=== PATIENT | male | born 1980 | race Caucasian/White ===

== ENCOUNTER 2018-09-04 23:14 | Inpatient (IN) | payer OTHER ==
[~2018-09-04] VITALS: Ht 177.8 cm; Wt 84.1 kg
[2018-09-05] VITALS (7 sets, daily range): BP systolic 113–139; BP diastolic 75–96
[2018-09-05 04:20] LABS: PLATELET COUNT 134 x10^3mcL (130-400); RED CELL DISTRIBUTION WIDTH 12.8 % (11.5-14.5)
[2018-09-05 04:36] LABS: BAND NEUTROPHIL 20 % (0-10); MONOCYTE 6 % (0-7); MYELOCYTE 1 % (0-2); SEGMENTED NEUTROPHILS 68 % (37-75)
[2018-09-05 04:40] LABS: PLATELET MORPHOLOGY PLATELETS DECREASED; rbc morphology (normal/abnorm) NORMAL (NORMAL)
[2018-09-05 04:53] LABS: CALCIUM 8.7 mg/dL (8.5-10.1); CARBON DIOXIDE 30.6 mmol/L (21-32); CHLORIDE SERUM 94 mmol/L (98-107); CREATININE SERUM 0.9 mg/dL (0.7-1.3); GFR1 > 60 mL/min; GLUCOSE SERUM 417 mg/dL (74-106); POTASSIUM SERUM 3.9 mmol/L (3.5-5.1); SODIUM SERUM 131 mmol/L (136-145)
[2018-09-05 04:58] LABS: ALBUMIN 3.6 g/dL (3.4-5.0); ALKALINE PHOSPHATASE 133 U/L (46-116); ALT/SGPT 39 U/L (16-63); AST/SGOT 27 U/L (15-37); BILIRUBIN TOTAL 0.58 mg/dL (0.20-1.00); TOTAL PROTEIN, SERUM 7.4 g/dL (6.4-8.2)
[2018-09-05 05:47] LABS: microscopic required? NO
[2018-09-05 05:53] LABS: UA SPECIFIC GRAVITY <=1.005 (1.005-1.035); urine erythrocyte NEGATIVE (NEGATIVE)
[2018-09-05 07:41] LABS: FREE T4 1.34 ng/dL (0.76-1.46); FREE THYROXINE INDEX 3.6 ug/dL (1.4-4.5); T4(THYROXINE) 9.6 ug/dL (4.7-13.3)
[2018-09-05 07:57] LABS: CHOLESTEROL/HDL RATIO 2.5; MAGNESIUM 1.5 mg/dL (1.8-2.4); PHOSPHOROUS 2.5 mg/dL (2.5-4.9)
[2018-09-05 08:18] LABS: T3 TOTAL 1.2 ng/mL
[2018-09-05] MEDS ORDERED: ADDERALL XR30 MG PO (15:55)
[2018-09-06 05:42] VITALS: BP 142/97
[2018-09-06 06:24] LABS: PLATELET COUNT 141 x10^3mcL (130-400); RED CELL DISTRIBUTION WIDTH 12.9 % (11.5-14.5)
[2018-09-06 06:40] LABS: CALCIUM 8.6 mg/dL (8.5-10.1); CARBON DIOXIDE 26.2 mmol/L (21-32); CHLORIDE SERUM 98 mmol/L (98-107); CREATININE SERUM 0.9 mg/dL (0.7-1.3); GFR1 > 60 mL/min; GLUCOSE SERUM 180 mg/dL (74-106); POTASSIUM SERUM 3.5 mmol/L (3.5-5.1); SODIUM SERUM 134 mmol/L (136-145)
[2018-09-06 09:41] VITALS: BP 154/97
[2018-09-06 13:19] LABS: BAND NEUTROPHIL 6 % (0-10); BASOPHIL 0 % (0-2); MONOCYTE 6 % (0-7); SEGMENTED NEUTROPHILS 84 % (37-75)
[2018-09-06 13:20] LABS: PLATELET MORPHOLOGY PLATELETS DECREASED; rbc morphology (normal/abnorm) ABNORMAL (NORMAL)
[2018-09-06 14:05] VITALS: BP 164/103
[2018-09-06 16:33] VITALS: BP 148/96
[2018-09-06 21:42] VITALS: BP 125/77
[2018-09-07 05:45] VITALS: BP 134/95
[2018-09-07 06:40] LABS: PLATELET COUNT 173 x10^3mcL (130-400); RED CELL DISTRIBUTION WIDTH 12.9 % (11.5-14.5)
[2018-09-07 06:51] LABS: CALCIUM 7.9 mg/dL (8.5-10.1); CHLORIDE SERUM 100 mmol/L (98-107); CREATININE SERUM 0.7 mg/dL (0.7-1.3); GFR1 > 60 mL/min; GLUCOSE SERUM 189 mg/dL (74-106); POTASSIUM SERUM 3.3 mmol/L (3.5-5.1); SODIUM SERUM 137 mmol/L (136-145)
[2018-09-07 09:02] VITALS: BP 140/88
[2018-09-07 10:07] LABS: BAND NEUTROPHIL 4 % (0-10); BASOPHIL 0 % (0-2); MONOCYTE 5 % (0-7); PLATELET MORPHOLOGY PLATELETS NORMAL; SEGMENTED NEUTROPHILS 82 % (37-75)
[2018-09-07 13:55] VITALS: BP 141/99
[2018-09-07 16:12] VITALS: BP 149/97
[2018-09-07 21:25] VITALS: BP 107/75
[2018-09-08 05:42] VITALS: BP 108/59
[2018-09-08 06:34] LABS: CALCIUM 8.3 mg/dL (8.5-10.1); CARBON DIOXIDE 26.5 mmol/L (21-32); CHLORIDE SERUM 101 mmol/L (98-107); CREATININE SERUM 0.7 mg/dL (0.7-1.3); GFR1 > 60 mL/min; GLUCOSE SERUM 233 mg/dL (74-106); POTASSIUM SERUM 3.4 mmol/L (3.5-5.1); SODIUM SERUM 136 mmol/L (136-145)
[2018-09-08 07:40] LABS: PLATELET COUNT 227 x10^3mcL (130-400); RED CELL DISTRIBUTION WIDTH 12.2 % (11.5-14.5)
[2018-09-08 08:07] VITALS: Ht 177.8 cm; Wt 84.1 kg
[2018-09-08 08:59] VITALS: BP 134/99
[2018-09-08 12:44] LABS: BAND NEUTROPHIL 9 % (0-10); BASOPHIL 0 % (0-2); METAMYELOCTE 1 % (0-2); MONOCYTE 13 % (0-7); MYELOCYTE 1 % (0-2); PLATELET MORPHOLOGY GIANT PLATELET SEEN; SEGMENTED NEUTROPHILS 63 % (37-75); rbc morphology (normal/abnorm) ABNORMAL (NORMAL); tear drop cell (dacryocyte) 1+
[2018-09-08 13:01] VITALS: BP 141/96
[2018-09-08 17:21] VITALS: BP 145/96
[2018-09-08 20:41] VITALS: BP 128/86
[2018-09-09 05:43] VITALS: BP 120/58
[2018-09-09 06:41] LABS: BASOPHIL % 0.5 % (0-2); PLATELET COUNT 295 x10^3mcL (130-400); RED CELL DISTRIBUTION WIDTH 13.3 % (11.5-14.5)
[2018-09-09 07:02] LABS: CALCIUM 8.7 mg/dL (8.5-10.1); CARBON DIOXIDE 26.6 mmol/L (21-32); CHLORIDE SERUM 101 mmol/L (98-107); CREATININE SERUM 0.7 mg/dL (0.7-1.3); GFR1 > 60 mL/min; GLUCOSE SERUM 198 mg/dL (74-106); POTASSIUM SERUM 3.5 mmol/L (3.5-5.1); SODIUM SERUM 136 mmol/L (136-145)
[2018-09-09 08:43] VITALS: BP 141/96
[2018-09-09 10:44] VITALS: BP 141/96
[2018-09-09 17:06] VITALS: BP 145/96
[2018-09-09 21:43] VITALS: BP 133/91
[2018-09-10 05:28] VITALS: BP 139/97
[2018-09-10 07:18] LABS: BASOPHIL % 0.4 % (0-2); PLATELET COUNT 318 x10^3mcL (130-400)
[2018-09-10 07:43] LABS: CALCIUM 8.7 mg/dL (8.5-10.1); CARBON DIOXIDE 25.6 mmol/L (21-32); CHLORIDE SERUM 101 mmol/L (98-107); CREATININE SERUM 0.7 mg/dL (0.7-1.3); GFR1 > 60 mL/min; GLUCOSE SERUM 160 mg/dL (74-106); POTASSIUM SERUM 3.2 mmol/L (3.5-5.1); SODIUM SERUM 137 mmol/L (136-145)
[2018-09-10 09:15] VITALS: BP 138/89
[2018-09-10] MEDS ORDERED: BACTRIM DS1 TAB PO (15:03)
[2018-09-10] MEDS ORDERED: LEVAQUIN750 MG PO (15:03)
[2018-09-10] MEDS ORDERED: LAC PO (15:09)
[2018-09-10 15:14] VITALS: BP 138/89
[2018-09-10] MEDS ORDERED: METFORMIN HCL500 MG PO (15:22)
[2018-09-10] MEDS ORDERED: LEVEMIR100 U/M1 SC (15:22)
[2018-09-10] MEDS ORDERED: BACO TOP (15:22)
[2018-09-10] MEDS ORDERED: HIB240 TOP (15:22)
== END 2018-09-10 16:53 | disposition home or self-care (01) | DRG 871 ==
LOC: ED 23:14 → DU 09-05 06:58 → MU 09-09 10:53
PROVIDERS: Emergency Medicine; General Practice; ADMIT Internal Medicine
DX: A41.9 Sepsis, unspecified organism (principal); J15.9 Unspecified bacterial pneumonia; J12.9 Viral pneumonia, unspecified; E87.1 Hypo-osmolality and hyponatremia; J44.1 Chronic obstructive pulmonary disease with (acute) exacerbation; J44.0 Chronic obstructive pulmonary disease with (acute) lower respiratory infection; F90.9 Attention-deficit hyperactivity disorder, unspecified type; E11.65 Type 2 diabetes mellitus with hyperglycemia; E83.42 Hypomagnesemia; E87.6 Hypokalemia; Z87.81 Personal history of (healed) traumatic fracture
CPT/HCPCS: 82962; 83880; 84439; 85378; 87804; 94150; J0295; J0456; J0696; J1644; J1815; J1885; J1956; J2543; J3370; J7030; J7620; Q0092